=== PATIENT | female | born 1955 | race Caucasian/White ===

== ENCOUNTER → 2021-02-06 | Day surgery (SDC) | payer OTHER, MEDICARE | END | disposition home or self-care (01) | LOC: FRADUS-SUR 11:51 | PROVIDERS: ATTEND Internal Medicine Rheumatology | PROC: 0HBU3ZX Excision of Left Breast, Percutaneous Approach, Diagnostic (ICD-10-PCS; principal; 2021-02-06) | DX: N60.22 Fibroadenosis of left breast (principal); N60.82 Other benign mammary dysplasias of left breast; N64.89 Other specified disorders of breast; N63.25 Unspecified lump in the left breast, overlapping quadrants | CPT/HCPCS: 19083; 87899; 88305-TC; A4648 ==